=== PATIENT | male | born 1965 | race Caucasian/White ===

== ENCOUNTER 2021-09-20 17:47 | Emergency (ER) | payer BC ==
[~2021-09-20] VITALS: Ht 180 cm; Wt 90.7 kg
[2021-09-20] MEDS ORDERED: ACETAMINOPHEN 500 MG TAB (TYLENOL) PO ONE (18:30)
[2021-09-20] MEDS ORDERED: IBUPROFEN 600 MG (MOTRIN) TAB PO ONE (18:30)
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
[2021-09-20] MEDS ORDERED: LIDO700A45 TP (19:34)
[2021-09-20 19:44] VITALS: BP 138/106
== END 2021-09-20 19:44 | disposition home or self-care (01) ==
LOC: ER 17:55
DX: R07.81 Pleurodynia (principal); X50.1XXA Overexertion from prolonged static or awkward postures, initial encounter
CPT/HCPCS: 71046; 93005